=== PATIENT | male | born 1950 | race Caucasian/White ===

== ENCOUNTER 2022-02-17 10:34 | Emergency (ER) | payer MEDICARE, MEDICAID, SELFPAY ==
--- NOTE | ~2022-02-17 | CT_ITS ---
EXAMINATION: CT BRAIN WITHOUT IV CONTRAST CT CERVICAL SPINE WITHOUT IV CONTRAST CLINICAL INFORMATION: Fall with head strike. COMPARISON: None TECHNIQUE: 5 mm thin axial and reformatted 2 mm thin sagittal and coronal images of brain were obtained without contrast. Subsequently, axial 3 mm thin and reformatted 2 mm thin sagittal and coronal images of cervical spine were obtained. DLP: 1539 mGy-cm. This CT examination was performed using dose optimization technique as appropriate, variously including the following: Automated exposure control Adjustment of MA and/or KV according to patient size(this includes techniques or standardized protocols for targeted exams where dose is matched to indication/reason for exam; extremities or head. Use of iterative reconstruction techniques. FINDINGS: BRAIN: There are several areas of increased attenuation left paramidline and right paramidline frontal lobes on coronal image 45/13 and 100/13. There is suspicion of subarachnoid bleed component along the right temporal fissure posteriorly. There is no edema or midline shift. No subdural or extradural collection seen. The lateral ventricles are symmetrical in size and configuration without enlargement. The great to white matter differentiation is maintained normal. Bone windows reveal no calvarial abnormality or fracture. There is no scalp soft tissue abnormality. There is diffuse mucoperiosteal thickening of left maxillary sinus. There are fractures involving the right zygoma, anterior and lateral wall of the right maxillary sinus with air-fluid level. CERVICAL SPINE: On sagittal reconstructed images, there is normal cervical lordosis. The vertebral heights and alignment is normal. There is loss of the C5-C6 and C6-C7 disc heights with vacuum disc phenomena and ventral and posterior spondylosis. The rest of the disc heights are maintained normal. The craniovertebral junction and the C1-C2 alignment is normal. The prevertebral and paravertebral soft tissues are normal. There is a 3 mm nodule right lung apex. Minimal bilateral apical pleural thickening is seen. The airway is widely patent. CT/CT cervical spine wo IV con IMPRESSION: 1. Bilateral frontal lobe hemorrhagic contusions. There is bilateral [id number] subarachnoid hemorrhage. 2. Right zygoma, anterior and lateral right maxillary sinus wall fractures with air-fluid level. Chronic left maxillary sinus inflammatory changes. 3. There is no acute fracture, dislocation or subluxation in the cervical spine. There are degenerative disc changes at the C5-C6 and C6-C7 disc levels with ventral and posterior spondylosis. 4. 3 mm nodule right lung apex. 5. Recommend CT cervical spine. Results were discussed with Ny Maldonado in the ER at 11:25 AM.
--- NOTE | ~2022-02-17 | CT_ITS ---
EXAMINATION: CT FACIAL BONES WITHOUT CONTRAST CLINICAL INFORMATION: Trauma. COMPARISON: None TECHNIQUE: 3 mm thin axial and reformatted 1.5 mm thin sagittal coronal images of facial bones were obtained. This CT examination was performed using dose optimization techniques as appropriate, variously including the following: *Automated exposure control *Adjustment of mA and/or kV according to patient size (this includes techniques or standardized protocols for targeted exams where dose is matched to indication/reason for exam; i.e. extremities or head) *Use of iterative reconstruction technique DLP: 298 mGy-cm FINDINGS: There are bilateral nondisplaced nasal bone fractures with mild soft tissue swelling. There is a nondisplaced fracture right lateral wall right orbit with mild proptosis. The medial wall right orbit and left orbital black are intact. Bilateral optic globes, optic nerve and intraorbital soft tissues are normal. No preseptal soft tissue swelling seen. There is a nondisplaced fracture involving the junction of lateral orbital wall and the intracranial fossa on axial image 190/2 There is fracture right zygoma with overlapping fragments. Also visualized is a nondisplaced fracture involving the right anterior, lateral and a nondisplaced fracture medial wall maxillary sinus. There is air-fluid level supporting the fractures. There is mucoperiosteal thickening left maxillary sinus without any fractures. The lamina papyracea and the cribriform plate is normal. This mild deviated anterior nasal septum to the left. The turbinates are symmetrical. Bilateral TM joints are symmetrical and normal. There is no fracture involving the mandible. The TM joints are symmetrical and normal. There is moderate-sized wax in bilateral external auditory canal.. There is mild bilateral maxillary facial soft tissue swelling. CT/CT facial bones wo IV con IMPRESSION: Fracture right zygoma with overlapping fracture fragments. Right lateral orbital wall fracture. There is a fracture involving the junction of intracranial process and the lateral wall as well. There is no intracranial lateral extra conal 6 soft tissue swelling. However there is minimal proptosis. Fractures involving the anterior, lateral and medial black of right maxillary sinus with air-fluid level. Chronic mucosal thickening left maxillary sinus without fracture. Bilateral nasal bone fractures with minimal soft tissue swelling.
--- NOTE | ~2022-02-17 | CT_ITS ---
EXAMINATION: CT BRAIN WITHOUT IV CONTRAST CT CERVICAL SPINE WITHOUT IV CONTRAST CLINICAL INFORMATION: Fall with head strike. COMPARISON: None TECHNIQUE: 5 mm thin axial and reformatted 2 mm thin sagittal and coronal images of brain were obtained without contrast. Subsequently, axial 3 mm thin and reformatted 2 mm thin sagittal and coronal images of cervical spine were obtained. DLP: 1539 mGy-cm. This CT examination was performed using dose optimization technique as appropriate, variously including the following: Automated exposure control Adjustment of MA and/or KV according to patient size(this includes techniques or standardized protocols for targeted exams where dose is matched to indication/reason for exam; extremities or head. Use of iterative reconstruction techniques. FINDINGS: BRAIN: There are several areas of increased attenuation left paramidline and right paramidline frontal lobes on coronal image 45/13 and 100/13. There is suspicion of subarachnoid bleed component along the right temporal fissure posteriorly. There is no edema or midline shift. No subdural or extradural collection seen. The lateral ventricles are symmetrical in size and configuration without enlargement. The great to white matter differentiation is maintained normal. Bone windows reveal no calvarial abnormality or fracture. There is no scalp soft tissue abnormality. There is diffuse mucoperiosteal thickening of left maxillary sinus. There are fractures involving the right zygoma, anterior and lateral wall of the right maxillary sinus with air-fluid level. CERVICAL SPINE: On sagittal reconstructed images, there is normal cervical lordosis. The vertebral heights and alignment is normal. There is loss of the C5-C6 and C6-C7 disc heights with vacuum disc phenomena and ventral and posterior spondylosis. The rest of the disc heights are maintained normal. The craniovertebral junction and the C1-C2 alignment is normal. The prevertebral and paravertebral soft tissues are normal. There is a 3 mm nodule right lung apex. Minimal bilateral apical pleural thickening is seen. The airway is widely patent. CT/CT head/brain wo IV con IMPRESSION: 1. Bilateral frontal lobe hemorrhagic contusions. There is bilateral [id number] subarachnoid hemorrhage. 2. Right zygoma, anterior and lateral right maxillary sinus wall fractures with air-fluid level. Chronic left maxillary sinus inflammatory changes. 3. There is no acute fracture, dislocation or subluxation in the cervical spine. There are degenerative disc changes at the C5-C6 and C6-C7 disc levels with ventral and posterior spondylosis. 4. 3 mm nodule right lung apex. 5. Recommend CT cervical spine. Results were discussed with Ny Maldonado in the ER at 11:25 AM.
[2022-02-17 10:44] VITALS: BP 190/94; PULSE 60
[2022-02-17 10:51] VITALS: PULSE 59; RESP 16; TEMP 37.2; O2SAT 100; BMI 21.2
--- NOTE | 2022-02-17 10:55 | ED_ITS ---
HPI - Fall General Chief Complaint: Fall Stated Complaint: Fall on sidewalk, hit head per EMS Time Seen by Provider: 02/17/22 10:47 Source: patient and EMS Mode of arrival: EMS Limitations: other (poor historian) History of Present Illness HPI Narrative: 71 yo male with unknown medical history who presents to the ER from the street via EMS with reports of a witnessed fall. There was a bystander who witnessed him trip and fall on the sidewalk. He reportedly faceplanted and did not put his hands out to brace his fall when he tripped. Unknown if he lost consciousness or not. Patient sustained a laceration to his right eyebrow. He was brought to the ER for further evaluation In the ER patient was awake and alert. He states he does not recall what happened. He does not remember falling. He denies any medical problems and states he is not on any medications. He is living with a friend on [facility]. He reports a mild/moderate right frontal headache where he sustained the laceration. MD complaint: fall Onset (ago): minute(s) Fall from: standing Fall witnessed: yes, by bystander Place fall occurred: street Loss of consciousness: unsure Prolonged down time: no Context: tripped/slipped Location of injury: head and face Associated symptoms (after fall): denies Related Data Allergies Allergy/AdvReac Type Severity Reaction Status Date / Time No Known Allergies Allergy Verified 02/17/22 10:50 Review of Systems Review of Systems: Constitutional: No Fever, No Chills ENT/Mouth: No sore throat, No Rhinorrhea Eyes: No Eye Pain, No Swelling, No Redness, No vision changes Cardiovascular: No Chest Pain, No SOB Respiratory: No Cough, No Sputum, No Wheezing, No dyspnea Gastrointestinal: No Nausea, No Vomiting, No Diarrhea, No abdominal Pain Genitourinary: No Dysuria, No Urinary Frequency, No Hematuria Musculoskeletal: No joint pain, No Myalgias Skin: +Skin Lesions (lac right eyebrow), No rash Neuro: No Weakness, No Numbness, No Dizziness, + Headache Psych: No Anxiety/Panic, No Depression Heme/Lymph: No Bruising, No Lymphadenopathy Endocrine: No Polyuria, No Polydipsia PMFSH Social History Social History Advance Directives: No Physical Exam Vital Signs: Vital Signs: Last Vital Signs Temp 99 F 02/17/22 10:51 Pulse 58 02/17/22 12:00 Resp 12 02/17/22 12:00 BP 119/54 L 02/17/22 12:00 Pulse Ox 98 02/17/22 12:00 O2 Del Method 02/17/22 12:00 BMI result Body Mass Index 21.2 Appearance: Alert. Oriented X. No acute distress. Head/face: normocephalic, no palpable skull depressions or areas of swelling. right upper eyebrow with 1.5 cm laceration wtih tenderness of the superior aspect of the orbit Eyes: Pupils equal, round and reactive to light. EOMI. ENT: Pharynx normal. Neck: Normal inspection. Neck supple. No midline tenderness. CVS: Normal heart rate and rhythm. Pulses normal. Respiratory: No respiratory distress. Breath sounds normal. Abdomen: Soft and nontender. +BS x4 Skin: Skin warm and dry. Normal skin color. Normal skin turgor. No rashes. Extremities: No lower extremity edema. Normal ROM x4, nontender. Minor abrasions on left hand knuckles. Neuro: Oriented X 3. No motor deficit. No sensory deficit. Course Course Course Narrative: 71 yo male with no known medical history presents to the ER for evaluation of a witnessed fall on the street resulting in a laceration above the right eye. Unknown LOC, not on anticoagulation. He is AAO x3, nonfocal neurologically. No other signs of trauma and he has no complaints other than headache. He is vitally stable. GCS is 15 Reevaluation(s) Reevaluation #1: Received call from Radiology - patient has scattered subarachnoid bleeds. No shift or edema. BP 130s systolic. He remains AAO x3. Will call [facility] for trauma transfer. Time: 11:32 Reevaluation #2: Spoke with Dr. Arnold from Trauma who accepted the patient to the ER as a trau ma consult. Time: 11:48 Reevaluation #3: CT scans 1. Bilateral frontal lobe hemorrhagic contusions. There is bilateral [id number] subarachnoid hemorrhage. ? 2. Right zygoma, anterior and lateral right maxillary sinus wall fractures with air-fluid level. Chronic left maxillary sinus inflammatory changes. ? 3. There is no acute fracture, dislocation or subluxation in the cervical spine. There are degenerative disc changes at the C5-C6 and C6-C7 disc levels with ventral and posterior spondylosis. ? 4. 3 mm nodule right lung apex. Consultations Consultation #1: [facility] Trauma Medical Decision Making Lab Data MDM Lab Attestation statement: I reviewed the patient's lab results. Result Diagrams: 02/17/22 11:25 02/17/22 11:25 Labs: Lab Results 02/17/22 02/17/22 02/17/22 Range/Units 11:25 11:25 11:25 WBC 7.4 (4.8-10.8) X10*3/uL RBC 4.59 L (4.60-5.80) X10*6/uL Hgb 14.5 (14.0-18.0) g/dl Hct 43.7 (42.0-52.0) % MCV 95.2 (80.0-98.0) fL MCH 31.6 (27.0-33.0) pg MCHC 33.2 (31.0-36.0) g/dl RDW 12.6 (11.0-16.0) % Plt Count 163 (160-400) X10*3/uL MPV 10.0 (9.4-12.4) fL Immature Gran % (Auto) 0.5 H (0.0-0.4) % Neut % (Auto) 71.6 (45-73) % Lymph % (Auto) 18.6 L (20-40) % Centre % (Auto) 5.4 (2-11) % Eos % (Auto) 3.2 (0-4) % Baso % (Auto) 0.7 (0-2) % Lymph # (Auto) 1.4 (1.2-4.9) X10*3/uL Centre # (Auto) 0.4 (0.1-1.2) X10*3/uL Eos # (Auto) 0.2 (0.0-0.4) X10*3/uL Baso # (Auto) 0.1 (0.0-0.2) X10*3/uL Abs Immat Gran (auto) 0.04 H (0.00-0.03) X10*3/uL Absolute Neuts (auto) 5.3 (2.0-8.3) x10*3/uL Absolute Nucleated RBC 0.000 (0.0-0.012) X10*3/uL Nucleated RBC % (auto) 0.0 (0.0-0.2) /100WBC PT (10.0-13.1) SEC INR (0.9-1.1) APTT (26.0-36.4) SEC Sodium 143 (135-145) mmol/L Potassium 4.0 (3.3-5.1) mmol/L Chloride 109 H (96-108) mmol/L Carbon Dioxide 26 (22-29) mmol/L Anion Gap 12 (12-20) BUN 18 H (9-16) mg/dL Creatinine 0.85 (0.5-1.4) mg/dL Estim Creat Clear Calc 66.4 Estimated GFR > 60 Random Glucose 145 H (60-115) mg/dL Calcium 8.6 (8.4-10.2) mg/dL Magnesium 1.8 (1.6-2.6) mg/dL Total Bilirubin 0.5 (0.0-1.0) mg/dL Direct Bilirubin 0.2 (0.0-0.5) mg/dL AST 23 (5-37) U/L ALT 18 (0-40) U/L Alkaline Phosphatase 69 (39-117) U/L Troponin I High Sens < 3.5 (<3.5-35.0) ng/L Total Protein 6.3 L (6.5-8.0) g/dL Albumin 3.9 (3.5-5.0) g/dL Ethyl Alcohol mg/dL COVID-19 (PHYLLIS) (Negative) COVID-19 Clin Com 02/17/22 02/17/22 02/17/22 Range/Units 11:25 11:26 11:49 WBC (4.8-10.8) X10*3/uL RBC (4.60-5.80) X10*6/uL Hgb (14.0-18.0) g/dl Hct (42.0-52.0) % MCV (80.0-98.0) fL MCH (27.0-33.0) pg MCHC (31.0-36.0) g/dl RDW (11.0-16.0) % Plt Count (160-400) X10*3/uL MPV (9.4-12.4) fL Immature Gran % (Auto) (0.0-0.4) % Neut % (Auto) (45-73) % Lymph % (Auto) (20-40) % Centre % (Auto) (2-11) % Eos % (Auto) (0-4) % Baso % (Auto) (0-2) % Lymph # (Auto) (1.2-4.9) X10*3/uL Centre # (Auto) (0.1-1.2) X10*3/uL Eos # (Auto) (0.0-0.4) X10*3/uL Baso # (Auto) (0.0-0.2) X10*3/uL Abs Immat Gran (auto) (0.00-0.03) X10*3/uL Absolute Neuts (auto) (2.0-8.3) x10*3/uL Absolute Nucleated RBC (0.0-0.012) X10*3/uL Nucleated RBC % (auto) (0.0-0.2) /100WBC PT 10.8 (10.0-13.1) SEC INR 0.9 (0.9-1.1) APTT 27.1 (26.0-36.4) SEC Sodium (135-145) mmol/L Potassium (3.3-5.1) mmol/L Chloride (96-108) mmol/L Carbon Dioxide (22-29) mmol/L Anion Gap (12-20) BUN (9-16) mg/dL Creatinine (0.5-1.4) mg/dL Estim Creat Clear Calc Estimated GFR Random Glucose (60-115) mg/dL Calcium (8.4-10.2) mg/dL Magnesium (1.6-2.6) mg/dL Total Bilirubin (0.0-1.0) mg/dL Direct Bilirubin (0.0-0.5) mg/dL AST (5-37) U/L ALT (0-40) U/L Alkaline Phosphatase (39-117) U/L Troponin I High Sens (<3.5-35.0) ng/L Total Protein (6.5-8.0) g/dL Albumin (3.5-5.0) g/dL Ethyl Alcohol < 10 mg/dL COVID-19 (PHYLLIS) Negative (Negative) COVID-19 Clin Com See Note Independent Interpretation I performed an independent interpretation of an: EKG Interpretation: Sinus bradycardia, ventricular rate 59 beats per minute, right bundle branch block is present, no ST segment elevations or depressions. Radiology Impression Discussion of test interpretation with radiology: I discussed test interpretation with the radiologist Radiologist Impression: SAH without edema or shift. Independent Historian Clinical information obtained from an independent historian. History obtained from or confirmed by: EMS Critical Care Time Critical Care Time Critical Care Time: Yes Total Critical Care Time: 42 Attestation: I have personally provided critical care time exclusive of time spent on [employer] tely billable procedures. Time includes review of lab data, radiology results, discussion with consultants, and monitoring for potential decompensation. Intervention performed as documented. Discharge Plan Discharge Clinical Impression: Subarachnoid hemorrhage, Closed fracture of right zygomatic bone Patient Disposition: [facility] Transfer Details: [facility] ER
--- NOTE | 2022-02-17 10:56 | ECG_ITS ---
Test Reason : fall Blood Pressure : / mmHG Vent. Rate : 059 BPM Atrial Rate : 059 BPM P-R Int : 162 ms QRS Dur : 116 ms QT Int : 436 ms P-R-T Axes : 054 028 057 degrees QTc Int : 431 ms Sinus bradycardia Right bundle branch block Abnormal ECG No previous ECGs available Referred By: Ny Maldonado Electronically Signed By:Francisco Skinner
[2022-02-17 11:30] LABS: MANUAL DIFF FLAG NO
[2022-02-17 11:32] LABS: Basophils Absolute Auto 0.1 X10*3/uL (0.0-0.2); Basophils Percent Auto 0.7 % (0-2); Eosinophils Absolute Auto 0.2 X10*3/uL (0.0-0.4); Eosinophils Percent Auto 3.2 % (0-4); Hematocrit 43.7 % (42.0-52.0); Hemoglobin 14.5 g/dl (14.0-18.0); Imm Gran Abs Auto 0.04 X10*3/uL (0.00-0.03); Imm Gran Pct Auto 0.5 % (0.0-0.4); Lymphocytes Absolute Auto 1.4 X10*3/uL (1.2-4.9); Lymphocytes Percent Auto 18.6 % (20-40); Mean Corpuscular HGB Conc 33.2 g/dl (31.0-36.0); Mean Corpuscular Hemoglobin 31.6 pg (27.0-33.0); Mean Corpuscular Volume 95.2 fL (80.0-98.0); Monocytes Absolute Auto 0.4 X10*3/uL (0.1-1.2); Monocytes Percent Auto 5.4 % (2-11); Neutrophils Absolute Auto 5.3 x10*3/uL (2.0-8.3); Neutrophils Percent Auto 71.6 % (45-73); Platelet Count 163 X10*3/uL (160-400); Red Blood Count 4.59 X10*6/uL (4.60-5.80); Red Cell Distribution Width 12.6 % (11.0-16.0); White Blood Count 7.4 X10*3/uL (4.8-10.8)
[2022-02-17 11:37] LABS: INTERNATIONAL NORM RATIO 0.9 (0.9-1.1); Prothrombin Time 10.8 SEC (10.0-13.1)
--- NOTE | 2022-02-17 11:37 | MHC.EDTECH ---
@0925 called [facility] transfer line. Spoke with a woman. She asked for the reason for the transfer, I asked Ny to coal picker the call and give this information. Ny took the call right away. After Ny gave the information they requested, I took the call again and gave demographics of the patient. The woman on the line told me she would give the information to trauma and get back to me.
[2022-02-17 11:39] LABS: Partial Thromboplastin Time 27.1 SEC (26.0-36.4)
[2022-02-17 11:51] LABS: Alanine Aminotransferase 18 U/L (0-40); Albumin Level 3.9 g/dL (3.5-5.0); Alkaline Phosphatase 69 U/L (39-117); Anion Gap 12 (12-20); Aspartate Amino Transferase 23 U/L (5-37); Bilirubin Direct 0.2 mg/dL (0.0-0.5); Bilirubin Total 0.5 mg/dL (0.0-1.0); Blood Urea Nitrogen 18 mg/dL (9-16); Calcium 8.6 mg/dL (8.4-10.2); Carbon Dioxide 26 mmol/L (22-29); Chloride 109 mmol/L (96-108); Creatinine Clr Calc Pharmacy 66.4; Estimated Glomerular Filt Rate > 60; Glucose Random 145 mg/dL (60-115); Magnesium 1.8 mg/dL (1.6-2.6); Sodium 143 mmol/L (135-145); Total Protein 6.3 g/dL (6.5-8.0)
[2022-02-17 11:52] LABS: Ethanol < 10 mg/dL
[2022-02-17 11:58] LABS: Troponin-I High Sensitivity < 3.5 ng/L (<3.5-35.0)
[2022-02-17 12:00] VITALS: BP 119/54; PULSE 58; RESP 12; O2SAT 98
[2022-02-17 12:06] LABS: COVID-19 Test Negative (Negative); IDNOW Serial# 16C4AD1C
--- NOTE | 2022-02-17 12:54 | PC.NURSE ---
attempted to call [facility] ED for report multiple times, no answer.
== END 2022-02-17 13:08 | disposition short-term general hospital (02) ==
PROVIDERS: Physician Assistant; Emergency Provider Student in an Organized Health Care Education/Training Program
DX: S02.40EA Zygomatic fracture, right side, initial encounter for closed fracture (principal); S06.6XAA Traumatic subarachnoid hemorrhage with loss of consciousness status unknown, initial encounter; S01.111A Laceration without foreign body of right eyelid and periocular area, initial encounter; S60.512A Abrasion of left hand, initial encounter; W01.198A Fall on same level from slipping, tripping and stumbling with subsequent striking against other object, initial encounter; Y93.01 Activity, walking, marching and hiking; Y92.480 Sidewalk as the place of occurrence of the external cause; Y99.9 Unspecified external cause status; Z20.822 Contact with and (suspected) exposure to COVID-19
CPT/HCPCS: 36415; 70450; 70486; 72125; 80048; 80076; 82077; 83735; 84484; 85025; 85610; 85730; 87635; 93005; 99285

== ENCOUNTER 2024-08-28 17:39 | Emergency (ER) | payer MEDICARE, MEDICAID, SELFPAY ==
[2024-08-28 18:07] VITALS: BP 131/72; PULSE 61; RESP 14; TEMP 36.6; O2SAT 98; BMI 22.0
[2024-08-28 20:42] VITALS: BP 145/76; PULSE 53; RESP 16; TEMP 36.8; O2SAT 98
--- NOTE | 2024-08-28 21:07 | ED.EYEPROB ---
HPI - Eye Problem General Chief complaint: Eye Problems Stated complaint: left eye issue Time Seen by Provider: 08/28/24 20:57 Source: patient and old records reviewed Mode of arrival: ambulatory Limitations: no limitations History of Present Illness ED Provider: BEBE HPI Narrative: 73 yo male with no known (doesn't go to doctors) sig PMH but he is very reluctant to talk much. I did ask if he had a safe place to live and if he was okay and he stated yes. He tells me he has yellow drainage and redness to L eye but no fevers, headaches, NO vision changes and he states I can see perfectly fine. He then tells me he just wants treatment and to leave. I did ask if he wore contacts but he states no. He notes he doesn't take any medications. He denies trauma to the eye. He states it is irritated. chief complaint: eye redness Onset (ago): day(s) (1) Onset description: gradual Duration: constant Location: left eye Eye Symptoms: redness, itching and discharge Place: home Mechanism: none Severity: moderate Associated symptoms: none Treatments Prior to Arrival: none Related Data Previous Rx's ?Medication ?Instructions ?Recorded ofloxacin 0.3 % eye drops 1 drp ophthalmic (eye) QID 5 days 08/28/24 #5 mL Allergies Allergy/AdvReac Type Severity Reaction Status Date / Time No Known Allergies Allergy Verified 08/28/24 18:10 Review of Systems Review of Systems: Constitutional : No Fever, No Chills, No Fatigue ENT/Mouth : No sore throat, No Rhinorrhea Eyes: No Eye Pain, No Swelling, pos Redness, pos eye drainage Cardiovascular : No Chest Pain, No SOB, No Dyspnea on Exertion Respiratory : No Cough, No Sputum Gastrointestinal : No Nausea, No Vomiting, No Diarrhea, No abdominal Pain Genitourinary : No Dysuria, No Urinary Frequency, No Hematuria, Musculoskeletal : No joint pain, No Myalgias, No Joint Swelling Skin : No Skin Lesions, No rash Neuro : No Weakness, No Numbness, No Dizziness, positive Headache All other systems reviewed and are negative [facility] Past Medical History Attestation statement: The following information was validated with the patient. Source: old records reviewed Medical History (Updated 08/28/24 @ 21:13 by Helena Zepeda DO) No pertinent past medical history Social History Social History (Updated 08/28/24 @ 21:10 by Helena Zepeda DO) Patient Tobacco Use Status: Never used Tobacco Physical Exam Vital Signs: Vital Signs: Last Vital Signs Temp 98.2 F 08/28/24 20:42 Pulse 53 08/28/24 20:42 Resp 16 08/28/24 20:42 BP 145/76 H 08/28/24 20:42 Pulse Ox 98 08/28/24 20:42 O2 Del Method Room Air 08/28/24 20:42 BMI result Body Mass Index 22.0 Appearance: Alert. Oriented X3. No acute distress. Frail and thin Eyes: Pupils equal, round and reactive to light. R eye normal, L eye conjunctival erythema and injection with purulent yellow drainage he has EOM i and no pain, he adamantly denies vision changes and states he can see light and fingers and has no blurry vision ENT: Pharynx normal. Neck: Normal inspection. Neck supple. CVS: Normal heart rate and rhythm. Pulses normal. Respiratory: No respiratory distress. Breath sounds normal. Abdomen: atraumatic Skin: Skin warm and dry. Normal skin color. Normal skin turgor. Extremities: No lower extremity edema. Neuro: Oriented X 3. No motor deficit. No sensory deficit. CN2-12 intact Medical Decision Making Medical Decision Making MDM Narrative: 73 yo male with no known (doesn't go to doctors) sig PMH here with c/o L eye with injection, purulent drainage, PERRL, EOMi no ext swelling or disease he adamantly denies vision changes to me or headache - I did try to discuss more of what was going on but he is very adamant he is going to go home. I am going to start him on ofloxacin drops for conjunctivitis and advised him to return in 48 hours if not better Differential Diagnosis Differential Diagnoses: The differential diagnosis associated with the presentation includes conjunctivitis, viral syndrome Admission/Observation Consideration of admission/observation: Escalation of care including admission/observation considered patient refuses any work up or further discussion he wants to go home Prescription Management I considered prescription management with: Antibiotic Discharge Plan Discharge Clinical Impression: Bacterial conjunctivitis Patient Disposition: Home, Self-Care Instructions: Conjunctivitis (ED) Additional Instructions: start drops tomorrow morning please go to pharmacy return for vision changes, severe headaches, severe eye pain, no imporvement in 48 hours or any other concerns wash your hands between touching eyes so you do not spread this to your other eye Prescriptions: New ofloxacin 0.3 % drops 1 drp ophthalmic (eye) QID 5 Days Qty: 5 0RF Print Language: [place]
[2024-08-28] MEDS: Erythromycin Base 0.5% Oph Oin 1 GM TUBE 1 CM EYE-LEFT (21:18)
[2024-08-28 21:23] VITALS: BP 145/76; PULSE 53; RESP 16; TEMP 36.8; O2SAT 98
== END 2024-08-28 22:07 | disposition home or self-care (01) ==
PROVIDERS: Emergency Provider Emergency Medicine
DX: H10.023 Other mucopurulent conjunctivitis, bilateral (principal)
CPT/HCPCS: 99283; 99284

== ENCOUNTER 2024-09-06 09:10 | Emergency (ER) | payer MEDICARE, MEDICAID, SELFPAY ==
[2024-09-06 09:27] VITALS: BP 110/59; PULSE 52; RESP 16; TEMP 36.8; O2SAT 97; BMI 18.0
[2024-09-06 10:25] LABS: MANUAL DIFF FLAG NO
[2024-09-06 10:38] LABS: Hematocrit 39.6 % (42.0-52.0); Hemoglobin 13.4 g/dl (14.0-18.0); Imm Gran Abs Auto 0.01 X10*3/uL (0.00-0.03); Imm Gran Pct Auto 0.2 % (0.0-0.4); Lymphocytes Absolute Auto 1.2 X10*3/uL (1.2-4.9); Mean Corpuscular HGB Conc 33.8 g/dl (31.0-36.0); Mean Corpuscular Hemoglobin 31.9 pg (27.0-33.0); Mean Corpuscular Volume 94.3 fL (80.0-98.0); NRBC Abs Auto 0.000 X10*3/uL (0.0-0.012); NRBC Pct Auto 0.0 /100WBC (0.0-0.2); Platelet Count 161 X10*3/uL (160-400); Red Blood Count 4.20 X10*6/uL (4.60-5.80); White Blood Count 4.9 X10*3/uL (4.8-10.8)
[2024-09-06 10:47] LABS: Alanine Aminotransferase 16 U/L (0-40); Albumin Level 4.0 g/dL (3.5-5.0); Alkaline Phosphatase 68 U/L (39-117); Anion Gap 7 (12-20); Aspartate Amino Transferase 27 U/L (5-37); Blood Urea Nitrogen 23 mg/dL (9-16); Calcium 8.5 mg/dL (8.4-10.2); Carbon Dioxide 29 mmol/L (22-29); Chloride 111 mmol/L (96-108); Creatinine Clr Calc Pharmacy 38.5; Estimated Glomerular Filt Rate > 60; Magnesium 2.0 mg/dL (1.6-2.6); Potassium 4.3 mmol/L (3.3-5.1); Sodium 143 mmol/L (135-145); Total Protein 6.4 g/dL (6.5-8.0)
--- NOTE | 2024-09-06 12:31 | ED.GENADULT ---
HPI - General Adult General Chief complaint: Failure to Thrive Stated complaint: falling Time Seen by Provider: 09/06/24 12:03 Source: patient, RN notes reviewed and old records reviewed Mode of arrival: ambulatory Limitations: no limitations History of Present Illness ED Provider: Mary Grace REDDING narrative: 74-year-old male with no diagnosed medical history with the patient admits he does not see a doctor presents for evaluation of failure to thrive. He was dropped off by his friend who reports the patient needs assistance at home. The patient reports that he has 3 steps to get into his house that have no railing but otherwise once inside his house he manages quite well He also notes concern that he does not have any a conditioning units at his home He reports that he has not fallen in over a year He denies any pain, fevers, chills, shortness of breath, cough, nausea vomiting He does report some crusting discharge from the left eye and he was seen here 9 days ago and diagnosed with conjunctivitis. He denies any pain to the eye and reports that he has been using his ofloxacin drops. Related Data Previous Rx's ?Medication ?Instructions ?Recorded ofloxacin 0.3 % eye drops 1 drp ophthalmic (eye) QID 5 days 08/28/24 #5 mL erythromycin 5 mg/gram (0.5 %) eye 0.5 inch ophthalmic (eye) TID 5 09/06/24 ointment days #3.5 grams Allergies Allergy/AdvReac Type Severity Reaction Status Date / Time No Known Allergies Allergy Verified 09/06/24 09:35 Review of Systems Constitutional: Constitutional: Denies body ache(s), Denies chills, Denies fever(s), Denies headache(s), Denies malaise and Denies weakness Eyes: Eyes: Denies blurry vision, Denies exophthalmos, Denies change in vision, Denies decreased night vision, Denies diplopia, Reports eye discharge, Denies itchy eyes, Denies loss of vision and Denies eye pain ENT: Denies dizziness, Denies dry mouth and Denies headache(s) Cardiovascular: Cardiovascular: Denies chest pain and Denies dyspnea on exertion Respiratory: Respiratory: Denies cough and Denies dyspnea on exertion Gastrointestinal: Gastrointestinal: Denies abdominal pain, Denies nausea and Denies vomiting Musculoskeletal: Musculoskeletal: Denies back pain Integumentary/Breasts: Skin/Breast: Denies rash Neurologic: Denies dizziness, Denies headache(s), Denies loss of vision and Denies weakness Allergic/Immunologic: Allergic/Immunologic: Denies itchy eyes PMFSH Past Medical History Medical History (Updated 09/06/24 @ 12:39 by Jani Brody) No pertinent past medical history Social History Social History (Updated 08/28/24 @ 21:10 by Helena Zepeda DO) Patient Tobacco Use Status: Never used Tobacco Smoked in Last 30 Days: No Use of substances other than those prescribed or required for medical reasons: No Advance Directives: No Advance Directives Information Provided: Yes Physical Exam ED Vital Signs: Vital Signs - 24 hr 09/06/24 15:45 09/06/24 18:23 09/06/24 22:00 Temperature 98.2 F 97.7 F 97 F Pulse Rate 50 52 54 Respiratory Rate 14 16 16 Blood Pressure 133/66 130/66 137/70 Pulse Oximetry 99 98 100 Oxygen Delivery Method Room Air Room Air Room Air 09/07/24 05:55 Temperature 97.7 F Pulse Rate 55 Respiratory Rate 16 Blood Pressure 114/59 L Pulse Oximetry 100 Oxygen Delivery Method Room Air BMI result Body Mass Index 18.0 Const General: healthy appearing, comfortable, alert and awake Nutritional Appearance: well nourished Orientation/consciousness: patient oriented x3 HENMT Head: Yes normocephalic and Yes atraumatic Eyes Other: There is a moderate amount of crusted yellow discharge around the left eye. The eye itself has no remarkable findings. No conjunctival injection, no obvious ulcerations. No chemosis Alignment and Position: alignment normal Conjunctivae: conjunctivae normal Sclerae: sclerae normal Corneas: corneas normal Pupils: Equal, round and reactive pupils present EOM: EOMs intact bilaterally Neck Neck: Yes full ROM Resp Effort & Inspection: normal respiratory effort, able to speak in complete sentences and not labored GI Inspection: No distended Palpation (GI): Soft to palpation, not firm, nontender, no guarding and not rigid Skin General skin exam: elasticity normal Neuro General: patient oriented x3 Cranial nerves: Yes Equal, round and reactive pupils present and Yes Bilaterally intact EOM present Cognition (Neuro): normal cognition Extrem Other: Moving all extremities well without any obvious deformities Course Reevaluation(s) Reevaluation #1: Patient decided he would not feel safe going back home and will be a social hold for long-term placement. Physician observation starting now pending placement Time: 13:45 Reevaluation #2: Time: 08:38 Date: 09/07/24 Provider: Elina Silva CNP Patient in physician observation for case management needs pending SNF placement. On erythromycin ointment for lefy eye conjunctivitis. No acute events reported overnight.? No current issues or complaints. VS stable. Will continue to monitor. Anticipating discharge to [facility] at 13:30 today, end physician observation. Medications Administered Generic Name Dose Route Start Last Admin Trade Name Freq PRN Reason Stop Dose Admin Erythromycin 1 cm 09/07/24 09:00 09/07/24 10:52 Erythromycin Base 0.5% Oph Oin 1 Gm Tube EYE-LEFT 09/14/24 08:59 1 cm QID CHRISTOPHER Administration Medical Decision Making Medical Decision Making [facility] Narrative: 74-year-old male presents for evaluation of failure to thrive due to lack of support at home. He has not had any recent falls, he has no evidence of falls or trauma. He denies any somatic complaints. He is concerned about the 3 steps leading into his house that do not have a railing and the lack of air conditioning units. I then put a consult into case management who will discuss with the patient. We will prescribe a separate course of erythromycin ointment for his left eye conjunctivitis. He has no pain to the area, he denies any blurry vision. No of an ulceration. In his unclear if he is single has active conjunctivitis or if he has not been able to wash his face or around his eyes. Differential Diagnosis Differential Diagnoses: The differential diagnosis associated with the presentation includes Bacterial conjunctivitis Viral conjunctivitis Failure to thrive Weakness Lab Data [facility] Lab Attestation statement: I reviewed the patient's lab results. No leukocytosis. The patient has a very mild anemia, no active bleeding. Normal platelet count. No significant electrolyte abnormalities warranting intervention. 09/06/24 10:20 09/06/24 10:20 Labs: Lab Results 09/06/24 09/06/24 09/06/24 Range/Units 10:20 12:18 15:01 WBC 4.9 (4.8-10.8) X10*3/uL RBC 4.20 L (4.60-5.80) X10*6/uL Hgb 13.4 L (14.0-18.0) g/dl Hct 39.6 L (42.0-52.0) % MCV 94.3 (80.0-98.0) fL MCH 31.9 (27.0-33.0) pg MCHC 33.8 (31.0-36.0) g/dl RDW 12.2 (11.0-16.0) % Plt Count 161 (160-400) X10*3/uL MPV 10.4 (9.4-12.4) fL Immature Gran % (Auto) 0.2 (0.0-0.4) % Neut % (Auto) 59.2 (45-73) % Lymph % (Auto) 24.4 (20-40) % [place] % (Auto) 10.7 (2-11) % Eos % (Auto) 4.5 H (0-4) % Baso % (Auto) 1.0 (0-2) % Lymph # (Auto) 1.2 (1.2-4.9) X10*3/uL [place] # (Auto) 0.5 (0.1-1.2) X10*3/uL Eos # (Auto) 0.2 (0.0-0.4) X10*3/uL Baso # (Auto) 0.1 (0.0-0.2) X10*3/uL Abs Immat Gran (auto) 0.01 (0.00-0.03) X10*3/uL Absolute Neuts (auto) 2.9 (2.0-8.3) x10*3/uL Absolute Nucleated RBC 0.000 (0.0-0.012) X10*3/uL Nucleated RBC % (auto) 0.0 (0.0-0.2) /100WBC Sodium 143 (135-145) mmol/L Potassium 4.3 (3.3-5.1) mmol/L Chloride 111 H (96-108) mmol/L Carbon Dioxide 29 (22-29) mmol/L Anion Gap 7 L (12-20) BUN 23 H (9-16) mg/dL Creatinine 1.08 (0.5-1.4) mg/dL Estim Creat Clear Calc 38.5 Estimated GFR > 60 Random Glucose 100 (60-115) mg/dL Calcium 8.5 (8.4-10.2) mg/dL Magnesium 2.0 (1.6-2.6) mg/dL Total Bilirubin 0.5 (0.0-1.0) mg/dL AST 27 (5-37) U/L ALT 16 (0-40) U/L Alkaline Phosphatase 68 (39-117) U/L Total Protein 6.4 L (6.5-8.0) g/dL Albumin 4.0 (3.5-5.0) g/dL Urine Color Yellow Urine Appearance Clear Urine pH 6.0 (5.0-9.0) Ur Specific Bates >= 1.030 H (1.005-1.025) Urine Protein Trace (Neg-Trace) mg/dL Urine Glucose (UA) Negative (Negative) mg/dL Urine Ketones Trace (Negative) mg/dL Urine Blood Negative (Negative) Urine Nitrite Negative (Negative) Ur Leukocyte Esterase Negative (Negative) Urine RBC 0-2 (0-2) /HPF Urine WBC 0-5 (0-5) /HPF Ur Squamous Epith Cells 0-2 (0-2) /HPF Urine Bacteria None Seen (None Seen) Hyaline Casts 0-2 (0-2) /LPF Influenza Type A (PCR) NEGATIVE (Negative) Influenza Type B (PCR) NEGATIVE (Negative) RSV RNA Qual (PCR) NEGATIVE (Negative) SARS-CoV-2 RNA (RT-PCR) NEGATIVE (Negative) Discharge Plan Discharge Clinical Impression: Conjunctivitis, Adult failure to thrive Patient Disposition: [facility] Transfer Details: [facility] Instructions: Failure to Thrive in Older Adults (ED), Conjunctivitis (ED) Additional Instructions: I recommend using the erythromycin ointment for your left eye, 3 times a day for 5 days. This should help with some of the discharge that is crusted around your eye. Return for new or worsening symptoms. You may follow up with Ophthalmology at the number provided if your symptoms do not improve You should receive a phone call from [facility] to assist with your living situation Prescriptions: New erythromycin 5 mg/gram (0.5 %) ointment 0.5 inch ophthalmic (eye) TID 5 Days Qty: 3.5 0RF No Action ofloxacin 0.3 % drops 1 drp ophthalmic (eye) QID 5 Days Qty: 5 0RF Referrals: [facility] [Outside] Print Language: Slovenian
[2024-09-06 12:32] LABS: Appearance Urine Clear; Glucose Urine UA Negative (Negative); PH 6.0 (5.0-9.0); Specific Gravity - Urine >= 1.030 (1.005-1.025)
--- NOTE | 2024-09-06 13:14 | MHC.CM.ED ---
Received case management consult from Guillermo CASTRO. Patient was brought to the ER by a friend due to falling . Work up indicated unhealed pink eye. Patient able to safely ambulate in the ER. Received notification patient's friends Javier and Araceli are concerned about patient's safety at home. Met with patient and Guillermo CASTRO. Patient is BLACKFEET but is able to hear T/W. Patient lives alone. He has difficulty navigating the 3 stairs in the front of his home because there is no railing. He also has no air conditioning. Patient denies falling. Patient feels he can safely return home. Patient agreeable to referral to [facility] so they can possible assist with obtaining an air conditioner and assessing if patient would qualify for any other services. Patient denies having a PCP. List of providers given. [facility] will not be able to be arranged because patient does not have a PCP. Patient verbalizes understanding. Patient gave verbal consent for CM to speak to Javier and Araceli. Spoke with Javier via telephone at [phone]. Javier states patient is extremly hard of hearing and has difficulty communicating with people. T/W explained patient was able to reiterate information verbally back to T/W and was also able to correct T/W that [facility] changed to [facility]. Javier states home that patient lives in is in the process of being sold and he will not have a place to leave. T/W explained landlord would have to provide a notice to quit in order for patient to no longer have housing. Also explained patient was able to verbalize that he has difficulty navigating the 3 stairs in the front. Also explained patient has capacity to make bad decisions and that patient has been ambulating in ER and would not qualify for STR. Javier verbalized understanding. Dorothy GUTIERREZ booked for 4pm. Patient, Ny PALACIOS and Guillermo CASTRO aware. Continue to monitor for d/c needs.
--- NOTE | 2024-09-06 13:37 | MHC.CM.ED ---
Received notification from Ny PALACIOS that patient is now interested in SNF placement. Met with patient. Explained referral would be broadcasted but might be difficult to find d/t 4 facilities closing locally. Patient verbalized understanding and agreeable. Referral will be broadcasted within 15 miles of patient's home. Continue to monitor for d/c needs.
--- NOTE | 2024-09-06 14:07 | PC.NURSE ---
Call received from friend of Pt Elena--Pt gives verbal permission to speak with Elena. Elena reports she has great concern for Pt living situation. She feels she cannot properly care for himself in the way of bathing and feeding. Elena reports she has known Pt for many years and feels he has declined significantly. Call received from Pts brother Robinson Sheets--Pt gives verbal consent to speak with Robinson. Robinson reports Pt is currently living in the home of their mother. The home is in disrepair: no water, no heat, no electricity; the front porch is structurally unsafe and it is unknown of there are other squatters within the structure. Robinson states that Pt has proven to be resistive to assistance and help in the past. Robinson can be reached at either of the two numbers: (c) [phone] (h) [phone] Above information shared with KRISTEN Cain.
[2024-09-06 15:45] VITALS: BP 133/66; PULSE 50; RESP 14; TEMP 36.8; O2SAT 99
[2024-09-06 15:46] LABS: Resp Syncy Virus RNA Qual PCR NEGATIVE (Negative); SARS COV2 PCR INHOUSE NEGATIVE (Negative)
--- NOTE | 2024-09-06 16:24 | MHC.CM.ED ---
CM met with patient with regards to discharge planning. Pt chooses [facility]. Notified via [facility]. Will need MDS and HCP. Pt agrees to complete HCP. Jarrett Schulz, friend, . HCP reviewed, completed and signed. Copies given Uploaded into [employer] and [facility] expanse.
[2024-09-06 18:23] VITALS: BP 130/66; PULSE 52; RESP 16; TEMP 36.5; O2SAT 98
[2024-09-06 22:00] VITALS: BP 137/70; PULSE 54; RESP 16; TEMP 36.1; O2SAT 100
--- NOTE | 2024-09-06 22:31 | PC.NURSE ---
Pt resting comfortably in bed. Callbell in reach and pt understands use. Pt able to ambulate with standby assist to bathroom.
[2024-09-07 05:55] VITALS: BP 114/59; PULSE 55; RESP 16; TEMP 36.5; O2SAT 100
--- NOTE | 2024-09-07 08:45 | PC.NURSE ---
Patient is a 74-year-old male with no diagnosed medical history with the patient admits he does not see a doctor presents for evaluation of failure to thrive. He was dropped off by his friend who reports the patient needs assistance at home. The patient reports that he has 3 steps to get into his house that have no railing. There is question that he lives in his mothers house which has been condemned. Patient alert and oriented but unkempt/malodorous. Hesitant to be involved regarding his care. Respirations even and non-labored. Abdomen soft, non-tender with postive bowel sounds. Positive pedal pulses with no edema. ? transition to STR today.
--- NOTE | 2024-09-07 10:22 | MHC.CM.ED ---
Patient remains in ER overflow. MDS and Level 1 completed. [facility] Will not be able to transfer until [facility] leveling obtained from [facility]. Continue to monitor for d/c needs.
--- NOTE | 2024-09-07 10:49 | MHC.CM.ED ---
Received notification from Gerri at [facility] that [facility] level will be avaialble today. [facility] 130[facility]. Dorothy dowell. [facility] with chart. Patient, Masha PALACIOS and Elina ORTEGA aware. Continue to monitor for d/c needs.
[2024-09-07] MEDS: Erythromycin Base 0.5% Oph Oin 1 GM TUBE 1 CM EYE-LEFT ×2 (10:52→13:17)
--- NOTE | 2024-09-07 12:58 | PHA.MEDREC ---
Addendum entered by Radha Corona RPh 09/07/24 13:04: Reviewed by [facility] Original Note: Pharmacy Consult ? Medication Reconciliation Pharmacy has completed the medication reconciliation. Spoke with pt and he was a poor historian with what he is taking right now; when I asked him about Ofloxacin eye drops, pt states he started an eye drop regimen last week (pt stated either Tuesday-) for an infection in his eye for 10 days. PT couldn't remember the last time he took the eye drops at this time.
--- NOTE | 2024-09-07 13:33 | PC.NURSE ---
Report given to Jhoana PALACIOS at [facility]
[2024-09-07 13:34] VITALS: BP 114/59; PULSE 55; RESP 16; TEMP 36.5; O2SAT 100
== END 2024-09-07 13:35 | disposition skilled nursing facility (03) ==
PROVIDERS: Physician Assistant; Emergency Provider Emergency Medicine
DX: H10.9 Unspecified conjunctivitis (principal); R62.7 Adult failure to thrive; Z03.818 Encounter for observation for suspected exposure to other biological agents ruled out; Z59.11 Inadequate housing environmental temperature; Z60.2 Problems related to living alone
CPT/HCPCS: 36415; 80053; 81001; 83735; 85025; 87637; 99283; 99284